=== PATIENT | male | born 1985 | race Caucasian/White ===

== ENCOUNTER 2018-02-18 19:14 | Inpatient (IN) | payer MEDICAID ==
[2018-02-18] MEDS ORDERED: Sodium Chloride 0.9% 1,000 ML IV ONE ×3 (19:31→23:00)
[2018-02-18] MEDS ORDERED: Morphine Sulfate 4 mg/mL 1mL Syr IVP STA ×2 (19:33→23:03)
--- NOTE | 2018-02-18 19:40 | ED Physician Chart ---
ED Chief Complaint/HPI - Patient Information Date Seen:: 02/18/18 Time Seen:: 19:35 Chief Complaint:: LT FLANK PAIN History of Present Illness:: 32 YR OLD MALE WITH ACUTE ONSET LT FLANK PAIN SEVERE 10/10 STARTED 4 HRS AGO WITH GROSS HEMATURIA NO FEVER NO CP OR SOBSOME NAUSEA NO VOMITING NO PREVIOUS HX OF KIDNEY STONES Allergies:: Allergies Allergy/AdvReac Type Severity Reaction Status Date / Time No Known Allergies Allergy Verified 02/18/18 19:17 Vitals:: Vital Signs - 8 hr 02/18/18 19:18 Temp 98.3 F HR 82 RR 19 BP 123/66 O2 Sat % 98 Historian:: Patient () ED Review of Systems - Review of Systems General/Constitutional: No fever, No chills, No weight loss, No weakness, No diaphoresis, No edema, No loss of appetite Skin: No skin lesions, No rash, No bruising Head: No headache, No light-headedness Eyes: No loss of vision, No pain, No diplopia ENT: No earache, No nasal drainage, No sore throat, No tinnitus Neck: No neck pain, No swelling, No thyromegaly, No stiffness, No mass noted Cardio Vascular: No chest pain, No palpitations, No PND, No orthopnea, No edema Pulmonary: No SOB, No cough, No sputum, No wheezing GI: Nausea, Pain G/U: Hematuria Musculoskeletal: No bone or joint pain, No back pain, No muscle pain Endocrine: No polyuria, No polydipsia Psychiatric: No prior psych history, No depression, No anxiety, No suicidal ideation Hematopoietic: No bruising, No lymphadenopathy Allergic/Immuno: No urticaria, No angioedema Neurological: No syncope, No focal symptoms, No weakness, No paresthesia, No headache, No seizure, No dizziness, No confusion, No vertigo ED Physical Exam - Physical Examination General/Constitutional: Awake, Well-developed, well-nourished, Alert, No distress, GCS 15, Non-toxic appearing, Ambulatory Head: Atraumatic Eyes: Lids, conjuctiva normal, PERRL, EOMI Skin: Nl inspection, No rash, No skin lesions, No ecchymosis, Well hydrated, No lymphadenopathy ENMT: External ears, nose nl, Nasal exam nl, Lips, teeth, gums nl Neck: Nontender, Full ROM w/o pain, No JVD, No nuchal rigidity, No bruit, No mass, No stridor Respiratory: Nl effort/Exclusion, Clear to Auscultation, No Wheeze/Rhonchi/Rales Cardio Vascular: RRR, No murmur, gallop, rubs, NL S1 S2 GI: No organomegaly, No hernia, Normal BS's, Nondistended, No mass/bruits, No McBurney tenderness Other GI comments:: RT FLANK PAIN AND GROSS HEMATURIA AND RT CVA TEND Other comments:: LT FLANK PAIN AND BLOOD IN URINE AND LT CVA TEND Extremities: No tenderness or effusion, Full ROM, normal strength in all extremities, No edema, Normal digits & nails Neuro/Psych: Alert/oriented, DTR's symmetric, Normal sensory exam, Normal motor strength, Judgement/insight normal, Mood normal, Normal gait, No focal deficits Misc: Normal back, No paraspinal tenderness ED Assessment - Assessment General Assessment: RT FLANK PAIN HEMATURIA RT CVA TENDERNESS ED Septic Shock - . Is Septic Shock (SBP<90, OR Lactate>4 mmol\L) present?: No - <6hrs of presentation: Vital Signs: Vital Signs - 8 hr 02/18/18 19:18 Temp 98.3 F HR 82 RR 19 BP 123/66 O2 Sat % 98 ED Reassessment (Disposition) - Diagnosis Diagnosis:: RT FLANK PAINR/O KIDNEY STONES
[2018-02-18 19:54] LABS: URINE MICROSCOPIC INDICATED? YES; URINE SOURCE CLEAN C
[2018-02-18] MEDS ORDERED: Morphine Sulfate 4 mg/mL 1mL Syr ONE (19:55)
[2018-02-18 19:56] LABS: HEMOGLOBIN 13.8 gm/dL (12-16); MEAN CELL VOLUME 89.7 fl (80-99); MEAN CORPUSCULAR HEMOGLOBIN 31.1 pg (26.0-30.0); MEAN CORPUSCULAR HGB CONC 34.6 pg (28.0-36.0); PLATELET COUNT 224 Th/cmm (150-400); RED BLOOD COUNT 4.45 Mil/cmm (4.30-5.70); RED CELL DISTRIBUTION WIDTH 12.2 % (11.5-20.0); WHITE BLOOD COUNT 15.5 Th/cmm (4.8-10.8)
[2018-02-18 20:00] LABS: URINE BLOOD LARGE (NEGATIVE); URINE GLUCOSE (UA) NEGATIVE (NEGATIVE); URINE KETONE NEGATIVE (NEGATIVE); URINE LEUKOCYTE ESTERASE NEGATIVE (NEGATIVE); URINE NITRATE NEGATIVE (NEGATIVE); URINE PROTEIN TRACE mg/dL (NEGATIVE); URINE UROBILINOGEN 0.2 E.U./dL (0.2 - 1.0)
[2018-02-18 20:06] LABS: URINE CLARITY HAZY (CLEAR); URINE COLOR YELLOW
[2018-02-18 20:07] LABS: INR 0.99 (0.5-1.4); PROTHROMBIN TIME (TEST) 10.3 SECONDS (9.5-11.5)
[2018-02-18 20:08] LABS: ALB/GLOB RATIO 1.7 (1.0-1.8); ALBUMIN 4.6 gm/dL (4.2-5.5); ALKALINE PHOSPHATASE 55 U/L (34-104); ANION GAP 13.1 (7.0-16.0); BILIRUBIN,TOTAL 0.7 mg/dL (0.3-1.0); BUN - UREA NITROGEN 20 mg/dL (7-25); CALCIUM SERUM 9.6 mg/dL (8.6-10.3); CARBON DIOXIDE 23.6 mEq/L (21.0-31.0); CHLORIDE 103 mEq/L (98-107); CREATININE - SERUM 1.3 mg/dL (0.7-1.3); GFR AFRICAN-AMERICAN > 60.0 ml/min (>90); GFR NON AFRICAN-AMERICAN > 60.0 ml/min; GLUCOSE 125 mg/dL (70-105); POTASSIUM SERUM 3.7 mEq/L (3.5-5.1); SGOT 19 U/L (13-39); SGPT/ALT 21 U/L (7-52); SODIUM SERUM 136 mEq/L (136-145); TOTAL PROTEIN,SERUM 7.3 gm/dL (6.0-8.3)
[2018-02-18 20:14] LABS: URINE BILIRUBIN NEGATIVE (NEGATIVE)
[2018-02-18 20:15] LABS: URINE BACTERIA NONE SEEN /hpf (NONE SEEN); URINE EPITHELIAL CELLS OCCASIONAL /lpf (FEW); URINE RBC 50-100 /hpf (0-5); URINE WBC 0-2 /hpf (0-5)
[2018-02-18 20:19] LABS: BAND NEUTROPHILE 1 % (0-10); BASOPHIL 0 % (0-3); EOSINOPHIL 0 % (0-5); LYMPHOCYTE 8 % (20-50); MONOCYTE 6 % (2-10); NEUTROPHILS 85 % (40-80)
[2018-02-18] MEDS ORDERED: Piperacillin Sodium/Tazobact 3.375 gm Vial IV ONE (20:29)
[2018-02-18] MEDS ORDERED: Morphine Sulfate 4 mg/mL 1mL Syr IVP PRN (23:10)
[2018-02-19 00:52] VITALS: BP 135/77
[2018-02-19 07:03] LABS: % BASOPHILS 0.1 % (0.0-2.0); % EOSINOPHILS 1.4 % (0.0-5.0); % LYMPHOCYTES 22.6 % (20.0-50.0); % MONOCYTES 11.1 % (2.0-10.0); % NEUTROPHILS 64.8 % (40.0-80.0); EOSINOPHILE ABSOLUTE 0.1 Th/cmm (0.1-0.4); HEMATOCRIT 37.8 % (41.0-60); HEMOGLOBIN 13.3 gm/dL (12-16); LYMPHOCYTE ABSOLUTE 2.4 Th/cmm (1.5-3.0); MEAN CELL VOLUME 88.9 fl (80-99); MEAN CORPUSCULAR HEMOGLOBIN 31.4 pg (26.0-30.0); MEAN CORPUSCULAR HGB CONC 35.3 pg (28.0-36.0); MEAN PLATELET VOLUME 8.2 fl; MONOCYTE ABSOLUTE 1.2 Th/cmm (0.3-1.0); PLATELET COUNT 208 Th/cmm (150-400); RED BLOOD COUNT 4.25 Mil/cmm (4.30-5.70); RED CELL DISTRIBUTION WIDTH 12.5 % (11.5-20.0); WHITE BLOOD COUNT 10.7 Th/cmm (4.8-10.8)
[2018-02-19 07:22] LABS: ALB/GLOB RATIO 1.6 (1.0-1.8); ALBUMIN 3.7 gm/dL (4.2-5.5); ALKALINE PHOSPHATASE 46 U/L (34-104); ANION GAP 9.2 (7.0-16.0); BUN - UREA NITROGEN 14 mg/dL (7-25); CALCIUM SERUM 8.5 mg/dL (8.6-10.3); CARBON DIOXIDE 25.2 mEq/L (21.0-31.0); CHLORIDE 106 mEq/L (98-107); GFR AFRICAN-AMERICAN > 60.0 ml/min (>90); GFR NON AFRICAN-AMERICAN > 60.0 ml/min; GLUCOSE 101 mg/dL (70-105); POTASSIUM SERUM 3.4 mEq/L (3.5-5.1); SGOT 16 U/L (13-39); SGPT/ALT 15 U/L (7-52); SODIUM SERUM 137 mEq/L (136-145)
--- NOTE | 2018-02-19 09:57 | Diagnostic Imaging Report ---
CT abdomen and pelvis without intravenous contrast Indication: Flank pain Comparison: None, Technique: Axial images were obtained from the lung bases to the bilateral proximal femurs without IV contrast. Coronal reconstructions were made. total DLP: [id number], [id number] FINDINGS: Hypoventilatory changes of the lung bases are noted with 3 mm nodular density at the right lung base. Assessment of the solid organs is limited due to lack of IV contrast. No evidence of focal hepatic, splenic, or pancreatic lesions. There is moderate left hydronephrosis and left hydroureter with surrounding perinephric inflammatory changes. No renal stones identified. There is a 2 mm stone at the left UVJ. 2 mm phlebolith is also seen adjacent to left distal ureter. The urinary bladder is collapsed containing limiting evaluation. Prominence of the urinary bladder wall is noted. There is fatty infiltration of the colonic mucosa. No evidence of appendicitis. There is minimal diverticulosis without evidence of diverticulitis. No free fluid or free air. Small fat-containing periumbilical hernia is noted. Mild degenerative changes lower lumbar spine are noted with pars defects at L5/S1. IMPRESSION: 2 mm stone at the left UVJ causing moderate left hydronephrosis and left hydroureter with surrounding inflammatory changes noted. Mild urinary bladder wall thickening, inflammatory process cannot be excluded. Minimal Diverticulosis without evidence of diverticulitis. Fatty infiltration of the colonic mucosa. Small fat-containing hernia adjacent to the umbilicus. Distended stomach. 3 mm nodular density along the right lung base. Findings favor old infectious or old inflammatory process. Consider follow-up if indicated.
--- NOTE | 2018-02-19 10:00 | Diagnostic Imaging Report ---
Ultrasound abdomen HISTORY: Gross hematuria COMPARISON: CT abdomen and pelvis the same day Technique: Sonography of the abdomen was performed in multiple planes. FINDINGS: Exam is severely limited due to bowel gas and body habitus. The liver demonstrates normal echogenicity and measures 19.5 cm. No evidence of focal lesions. The gallbladder is suboptimally distended. There may be small amount of gallbladder sludge. No discrete gallstones identified. Gallbladder wall measures 2 mm. The Common bile duct measures 3 mm. Evaluation of pancreas is limited due to bowel gas. The right kidney measures 13.0 x 6.1 cm. The Left kidney measures 15.1 x 6.5 seen. The renal margins are not well-defined, however, no obvious focal lesions or evidence of hydronephrosis. The spleen measures 12 cm. The urinary bladder is underdistended, limiting its evaluation. IMPRESSION: Limited exam due to body habitus and bowel gas. Mild increased renal sizes. Please refer to CT abdomen and pelvis the same day for further details of left-sided hydronephrosis secondary to distal left UVJ stone. Hepatomegaly. Borderline prominent spleen. Probable small amount of gallbladder sludge
--- NOTE | 2018-02-19 10:05 | History & Physical ---
ADMIT DATE: 02/19/2018 REASON FOR ADMISSION: Left-sided 2 mm kidney stones. HISTORY OF PRESENTING ILLNESS: This one is a 32-year-old gentleman presented with left flank pain, severe, 10/10, started at 2:00 in the afternoon on 02/18/2018 with gross hematuria. The patient had no other symptomatology including no fever, no chills, no sweating, no headache, no vision problem, no swallowing problem, no URI symptomatology, no chest pain, no chest pressure, no cough or sputum production, no vomiting, no diarrhea, no melena, no bright red blood per rectum, no leg swelling or joint swelling. No rashes. The patient never had a kidney stone. No family history of kidney stone. ALLERGIES: None. SOCIAL HISTORY: Noncontributory. No smoking, alcohol. FAMILY HISTORY: No kidney stone or urinary problem. PAST MEDICAL HISTORY: None. MEDICATIONS: None. REVIEW OF SYSTEMS: See the history of presenting illness. PHYSICAL EXAMINATION: VITAL SIGNS: Height of 1.83 meter, weight 137 kilo, BMI 41.2, temperature 98.4, afebrile since admission, pulse 75, respiratory rate 18, blood pressure 118/62 and oxygen saturation 96%. HEENT: Unremarkable. No icterus, no pallor. Mucosa is moist. No petechia. NECK: Supple. No JVD, bruit, or lymphadenopathy. LUNGS: Clear. CARDIOVASCULAR: S1, S2 normal limit. ABDOMEN: Obese, but no rebound, no guarding, no severe tenderness. Bowel sound is active. EXTREMITIES: Unremarkable, dorsalis pedis palpable. CENTRAL NERVOUS SYSTEM: Cranial nerves intact, nonfocal. MUSCULOSKELETAL: No clubbing, cyanosis, or synovitis. LABORATORY TESTS: Significant for WBC on admission 15.5, repeat one is 10.7, hemoglobin 13.3, MCV 88, platelet count of 208,000, neutrophil 64%. Sodium 137, potassium 3.4, chloride 106, bicarb 25, BUN 14, creatinine 1.0 and glucose of 101, calcium 8.5. Liver panel is unremarkable. Albumin 3.7. Urinalysis: PH 6.0, specific gravity 1.030, blood large and rbc's 50-100. IMAGING STUDY: 2 mm stone on left side of the ureter with mild hydronephrosis. ASSESSMENT AND PLAN: 1. Left-sided kidney stone with acute left flank pain, severe with symptomatic pain. The patient admitted, started on IV fluid and Flomax and pain control, nausea control. Now, the patient is pain free, so we will able to discharge him. Advised the patient to increase water and avoid caffeine, soda, chocolates and sugary juices and sugary drinks. The patient is to follow up with primary care physician. 2. Morbid obesity with BMI of 41.2, reduce calorie diet, exercise and weight loss. JOB# [id number] [facility]
== END 2018-02-19 11:05 | disposition home or self-care (01) | DRG 465 ==
LOC: ER 19:14 → MSI 22:30
PROVIDERS: ADMIT Internal Medicine; ATTEND Internal Medicine
DX: N20.0 Calculus of kidney (principal); E66.01 Morbid (severe) obesity due to excess calories; R31.0 Gross hematuria; R10.9 Unspecified abdominal pain; Z68.41 Body mass index [BMI] 40.0-44.9, adult
CPT/HCPCS: 36415-UA; 76700-TC; 80053-TC; 81001-TC; 83605; 85007-TC; 85025-TC; 85610-TC; 96375; J2405; J2543; J7030; Z7610